=== PATIENT | female | born 1950 | race Caucasian/White ===

== ENCOUNTER → 2017-02-18 | Outpatient (CLI) | payer MEDICARE ==
[~2017-02-18] MED LIST: LEVO500T8 PO
== END | disposition home or self-care (01) ==
LOC: CLISVCS 14:11
PROVIDERS: ATTEND Specialist
DX: G43.109 Migraine with aura, not intractable, without status migrainosus (principal)
CPT/HCPCS: 93005

== ENCOUNTER 2019-11-21 12:05 | Emergency (ER) | payer MEDICARE ==
[~2019-11-21] VITALS: Ht 162.6 cm; Wt 63.8 kg
--- NOTE | 2019-11-21 12:29 | NUR ---
PATIENT HERE TODAY WITH CHIEF C/O OF BURNING URINATION. PATIENT STATES THIS STARTED THIS MORNING, AND WHEN SHE WIPED THERE WAS SOME BLOOD NOTED ON THE TOILET PAPER. NO APPARENT SIGNS OF DISTRESS, CONNECTED TO VITALS MACHINE.
--- NOTE | 2019-11-21 12:38 | NUR ---
URINE SAMPLE COLLECTED AND SENT TO LAB.
[2019-11-21 13:08] LABS: MICROSCOPIC AUTO
[2019-11-21] MEDS ORDERED: CEFDINIR 300 MG CAPSULE ONE (13:17)
[2019-11-21 13:23] VITALS: BP 122/81
[2019-11-21] MEDS ORDERED: CEFDINIR 300 MG CAPSULE PO ONE (13:30)
--- NOTE | 2019-11-21 13:33 | NUR ---
Patient given discharge instructions and prescription and they have confirmed that they understand the instructions, no questions. Patient gathered all patient belongings. Patient ambulatory with steady gait to discharge desk.
== END 2019-11-21 13:34 | disposition home or self-care (01) ==
LOC: ED 12:48
DX: N30.01 Acute cystitis with hematuria (principal); I10 Essential (primary) hypertension; E78.00 Pure hypercholesterolemia, unspecified
CPT/HCPCS: 81001; 87086; 99283